=== PATIENT | female | born 1965 | race Caucasian/White ===

== ENCOUNTER 2017-08-29 12:34 | Emergency (ER) | payer OTHER ==
[~2017-08-29] VITALS: Ht 167.6 cm; Wt 81.6 kg
[~2017-08-29 12:34] MED LIST: ATIVAN0.5 MG PO; ATORVASTATIN CA10 MG; BENTYL20 MG PO; CYANOCOBALAM1000 MCG PO; FLEXERIL10 MG PO; FLOVENT DISKUS1 DISK IH; GLUCOPHAGE500 MG PO; LIPITOR10 MG PO; LO-DOSE ASPIRIN81 M1 PO; LYRICA75 MG PO; METFORMIN HCL500 MG PO; MOTRIN600 MG PO; OMEPRAZOLE40 M1 PO; PROVENTIL,2.5 MG/3 M IH; RANITIDINE HCL150 MG PO; VENTOLIN HFA18 GM IH; VITAMIN C1000 MG PO; VITAMIN D1000 INTUN PO
[2017-08-29 13:25] LABS: HEMATOCRIT 35.5 % (36.0-46.0); HEMOGLOBIN 12.2 G/DL (11.9-15.5); MCH 30.8 PG (29.0-34.0); MCHC 34.4 G/DL (30.0-36.0); MCV 89.6 FL (83-99); PLATELET COUNT 242 K/uL (156-360); RBC DIS.WIDTH-CV 12.3 % (11.8-14.6); RBC DIS.WIDTH-SD 40.3 % (39-53); RED BLOOD COUNT 3.96 M/uL (3.80-5.20); WHITE BLOOD COUNT 3.6 K/uL (4.1-10.2)
[2017-08-29 13:35] LABS: APPEARANCE CLEAR ((CLEAR)); BILIRUBIN NEGATIVE; BLOOD SMALL; COLOR YELLOW ((YELLOW)); GLUCOSE (STRIP) 150; KETONES NEGATIVE; LEUKOCYTES NEGATIVE; NITRITE NEGATIVE; PROTEIN (STRIP) 30; SPECIFIC GRAVITY 1.024 (1.000-1.030); UROBILINOGEN 0.2 MG/DL (0.2-1.0)
[2017-08-29 13:37] LABS: ALBUMIN 4.3 g/dL (3.2-4.8); CHLORIDE 105 mEq/L (99-109); POTASSIUM 4.3 mEq/L (3.7-5.4); SODIUM 141 mEq/L (136-147)
[2017-08-29 13:38] LABS: BACTERIA RARE /HPF; EPITHELIAL CELLS 1+ /HPF; MUCUS TRACE /LPF; RED BLOOD CELLS 0-5 /HPF (0-5); UCUL ADDED? NO; WHITE BLOOD CELLS 0-5 /HPF (0-5)
[2017-08-29 13:39] LABS: GLUCOSE 239 mg/dL (70-99); TOTAL PROTEIN 7.2 g/dL (6.4-8.3)
[2017-08-29 13:41] LABS: TOTAL BILIRUBIN 0.6 mg/dL (0.0-1.0)
[2017-08-29 13:43] LABS: ALKALINE PHOSPHATASE 101 IU/L (3-129); CREATININE 0.8 mg/dL (0.6-1.3); GFR ESTIMATE (CALCULATED) > 59 mL/min/
[2017-08-29 13:44] LABS: UREA NITROGEN (BUN) 12 mg/dL (9-23)
[2017-08-29 13:45] LABS: AST (GOT) 20 IU/L (2-34)
[2017-08-29 13:46] LABS: ALT (GPT) 35 IU/L (3-49)
[2017-08-29] MEDS ORDERED: LOMOTIL TABLET1 EACH PO (14:46)
[2017-08-29] MEDS ORDERED: NORCO 5/3251 TABLET PO (14:46)
[2017-08-29 15:01] VITALS: BP 147/82
== END 2017-08-29 15:04 | disposition home or self-care (01) ==
LOC: EME 12:34
DX: R10.9 Unspecified abdominal pain (principal); R19.7 Diarrhea, unspecified; M79.7 Fibromyalgia; G35 Multiple sclerosis; E11.9 Type 2 diabetes mellitus without complications; Z79.84 Long term (current) use of oral hypoglycemic drugs; J45.909 Unspecified asthma, uncomplicated; F32.9 Major depressive disorder, single episode, unspecified; E78.5 Hyperlipidemia, unspecified; F41.9 Anxiety disorder, unspecified; K21.9 Gastro-esophageal reflux disease without esophagitis; D64.9 Anemia, unspecified; Z86.73 Personal history of transient ischemic attack (TIA), and cerebral infarction without residual deficits; Z95.5 Presence of coronary angioplasty implant and graft; Z87.891 Personal history of nicotine dependence
CPT/HCPCS: 80053; 81003; 85027; 99281; 99283